=== PATIENT | female | born 1990 | race Caucasian/White ===

== ENCOUNTER 2021-04-27 09:58 | Outpatient (CLI) | payer OTHER, SELFPAY ==
[2021-04-27] VITALS (11 sets, daily range): BP systolic 124–130; BP diastolic 82–91; PULSE 94–104; O2SAT 99–100
--- NOTE | ~2021-04-27 | US_ITS ---
EXAMINATION: US OB limited EXAM DATE: 04/27/2021 11:33 INDICATION: , leaking fluid. Early 3rd trimester. TECHNIQUE: Pelvic obstetrical transabdominal sonogram was performed by a technologist. There are mu ltiple grayscale and Doppler images available for interpretation. There are no earlier studies of th is gestation for comparison. FINDINGS: There is a single fetus identified in vertex presentation with a heart rate of 144 beats pe r minute. The placenta is located in the anterior position. There is no sonographic evidence of retr oplacental hemorrhage identified. AMNIOTIC FLUID INDEX Quadrant 1: 6.1 cm Quadrant 2: 3.8 cm Quadrant 3: 3.8 cm Quadrant 4: 5.1 cm Amniotic fluid index: 18.8 cm. (The 5th -- 95th percentile range is 9.4-22.8). IMPRESSION: 1. Single fetus in vertex presentation with heart rate 144 beats per minute. 2. Normal DIAZ 18.8 cm. Reviewed, dictated and finalized at location A. TH UNDERWRITER
== END 2021-04-27 11:50 | disposition home or self-care (01) ==
LOC: ANHOBOP 10:09 → ANHOBPP 10:11
PROVIDERS: PCP Family Medicine; Visit Provider Obstetrics & Gynecology
DX: O41.8X90 Other specified disorders of amniotic fluid and membranes, unspecified trimester, not applicable or unspecified (principal); Z3A.00 Weeks of gestation of pregnancy not specified
CPT/HCPCS: 36415; 59025; 76815; 84112; 87070; 87106; 99199

== ENCOUNTER 2021-06-22 09:57 | Observation (INO) | payer OTHER, SELFPAY ==
[2021-06-22 10:20] VITALS: BMI 40.8
--- NOTE | 2021-06-22 10:20 | OBADM ---
This patient, Ro Mendez, admitted to the OB room 115 for observation. Patient/family oriented to hospital policies and general routines including ID bracelet, bed and alarms, visiting hours, pain management, procedures, bathroom and other care routines, personal items, smoking policy, room service/diet, and visiting hours. Patient/Family are encouraged to report perceived risks to care and to ask questions if they do not understand what they are told or what they should do.
[2021-06-22 10:30] VITALS: TEMP 37.1
[2021-06-22] MEDS: ACETAMINOPHEN 500 MG TABLET 1000 MG PO (11:31)
[2021-06-22 11:33] LABS: Add Urine Microscopic? NO; Appearance Urine Clear (Clear); Bilirubin Urine Negative (Negative); Blood Urine Negative (Negative); Color Urine Straw (Yellow); Glucose Urine UA Negative (Negative); Ketones Urine Negative (Negative); Leukocyte Esterase Ur Negative LEU/UL (Negative); Nitrate Urine Negative (Negative); Protein Urine Negative (Negative); Urobilinogen Urine Negative mg/dL (<2.0)
[2021-06-22 11:38] VITALS: BP 131/85; PULSE 97
[2021-06-22 11:38] LABS: Specific Grav Ur 1.004 (1.001-1.035)
[2021-06-22 11:38] LABS: Creatinine Urine 37.3 mg/dL; Total Protein Urine Random 18 mg/dL; Ur Ttl Prot Creatinine Ratio 0.48 mg/mg (0-0.20)
[2021-06-22 11:40] LABS: Basophils Percent Auto 0.3 % (0.2-1.2); Eosinophils Absolute Auto 0.1 K/mm3 (0-0.3); Eosinophils Percent Auto 0.5 % (0-4.4); Hematocrit 34.5 % (37.0-47.0); Hemoglobin 11.4 g/dL (12.0-15.0); Immature Granulocyte Absolute 0.05 K/mm3 (0.00-0.031); Immature Granulocyte Percent A 0.4 % (0-0.5); Lymphocytes Absolute Auto 1.64 K/mm3 (0.9-3.2); Lymphocytes Percent Auto 13.7 % (18.3-44.2); Mean Corpuscular Hemoglobin 28.9 pg (26-34); Mean Corpuscular Volume 87.3 fl (80-100); Mean Platelet Volume 10.6 fl (7.4-10.4); Monocytes Absolute Auto 0.8 K/mm3 (0.1-0.6); Monocytes Percent Auto 6.4 % (2.6-8.5); Neutrophils Absolute Auto 9.4 K/mm3 (1.3-6.7); Neutrophils Percent Auto 78.7 % (45.5-73.1); Platelet Count Result 214 k/mm3 (150-375); Red Blood Count 3.95 M/mm3 (4.2-5.4); Red Cell Distribution Width 13.4 % (11.5-14.5)
[2021-06-22 11:50] LABS: Alanine Aminotransferase 9 U/L (4-35); Albumin Level 3.6 g/dL (3.5-5.1); Alkaline Phosphatase 125 U/L (38-126); Anion Gap 6 mmol/L (8-16); Aspartate Amino Transferase 18 U/L (14-36); Bilirubin,Total 0.2 mg/dL (0.2-1.3); Blood Urea Nitrogen 6 mg/dL (7-17); Calcium 9.2 mg/dL (8.4-10.2); Carbon Dioxide 24 mmol/L (22-30); Chloride 106 mmol/L (98-107); Estimated CRCL calculation 133 ml/min; Estimated Glomerular Filt Rate > 60; Glucose 77 mg/dL (65-110); Potassium 4.7 mmol/L (3.4-5.0); Sodium 136 mmol/L (137-145); Uric Acid 4.6 mg/dL (2.5-7.5)
[2021-06-22 12:01] VITALS: BP 123/84; PULSE 93
--- NOTE | 2021-07-03 07:20 | PM.OBTRLD ---
OB - Triage/Final Diagnosis Visit Information Comments/Additional reasons for admission: I have assessed the risk for this patient, Ro Mendez, and determined that she would benefit from observation care. Evaluation Laboratory results: Laboratory Tests 06/22/21 06/22/21 06/22/21 11:05 11:16 11:25 WBC 12.0 H RBC 3.95 L Hgb 11.4 L Hct 34.5 L MCV 87.3 MCH 28.9 MCHC 33.0 RDW 13.4 Plt Count 214 MPV 10.6 H Immature Gran % (Auto) 0.4 Neut % (Auto) 78.7 H Lymph % (Auto) 13.7 L [place] % (Auto) 6.4 Eos % (Auto) 0.5 Baso % (Auto) 0.3 Lymph # (Auto) 1.64 [place] # (Auto) 0.8 H Eos # (Auto) 0.1 Baso # (Auto) 0.0 Abs Immat Gran (auto) 0.05 H Absolute Neuts (auto) 9.4 H Absolute Nucleated RBC 0.0 Nucleated RBC % 0.0 Sodium Potassium Chloride Carbon Dioxide Anion Gap BUN Creatinine Estim Creat Clear Calc Estimated GFR Glucose Uric Acid Calcium Total Bilirubin AST ALT Alkaline Phosphatase Total Protein Albumin Urine Color Straw Urine Appearance Clear Urine pH 7.0 Ur Specific [place] 1.004 Urine Protein Negative Urine Glucose (UA) Negative Urine Ketones Negative Ur Blood (Man) Negative Urine Nitrate Negative Urine Bilirubin Negative Urine Urobilinogen Negative Leukocyte Esterase Rfl Negative U Random Total Protein 18 Urine Creatinine 37.3 Protein/Creat Ratio 2 0.48 H 06/22/21 11:25 WBC RBC Hgb Hct MCV MCH MCHC RDW Plt Count MPV Immature Gran % (Auto) Neut % (Auto) Lymph % (Auto) [place] % (Auto) Eos % (Auto) Baso % (Auto) Lymph # (Auto) [place] # (Auto) Eos # (Auto) Baso # (Auto) Abs Immat Gran (auto) Absolute Neuts (auto) Absolute Nucleated RBC Nucleated RBC % Sodium 136 L Potassium 4.7 Chloride 106 Carbon Dioxide 24 Anion Gap 6 L BUN 6 L Creatinine 0.60 L Estim Creat Clear Calc 133 Estimated GFR > 60 Glucose 77 Uric Acid 4.6 Calcium 9.2 Total Bilirubin 0.2 AST 18 ALT 9 Alkaline Phosphatase 125 Total Protein 7.0 Albumin 3.6 Urine Color Urine Appearance Urine pH Ur Specific [place] Urine Protein Urine Glucose (UA) Urine Ketones Ur Blood (Man) Urine Nitrate Urine Bilirubin Urine Urobilinogen Leukocyte Esterase Rfl U Random Total Protein Urine Creatinine Protein/Creat Ratio 2 Final Diagnosis (1) Headache: Code(s): R51.9 - Headache, unspecified Status: Acute (2) PIH ( induced hypertension): Code(s): O13.9 - Gestational [-induced] hypertension without significant proteinuria, unspecified trimester Status: Acute
== END 2021-06-22 13:02 | disposition home or self-care (01) ==
PROVIDERS: Admitting Provider Obstetrics & Gynecology; PCP Family Medicine; Visit Provider Obstetrics & Gynecology
DX: O13.3 Gestational [pregnancy-induced] hypertension without significant proteinuria, third trimester (principal); R51.9 Headache, unspecified; Z3A.36 36 weeks gestation of pregnancy
CPT/HCPCS: 36415; 80053; 81003; 82570; 84112; 84156; 84550; 85025; A9270; G0378; G0379

== ENCOUNTER 2021-06-23 23:34 | Observation (INO) | payer OTHER, SELFPAY ==
[2021-06-23 23:49] VITALS: BP 145/103; PULSE 102
[2021-06-24] VITALS (8 sets, daily range): BP systolic 104–135; BP diastolic 57–84; PULSE 87–110; BMI 38.5
--- NOTE | 2021-06-24 05:01 | OBADM ---
This patient, Ro Mendez, admitted to the OB room Labor/Delivery/Recovery 109 for observation. Patient/family oriented to hospital policies and general routines including ID bracelet, bed and alarms, visiting hours, pain management, procedures, bathroom and other care routines, personal items, smoking policy, room service/diet, and visiting hours. Patient/Family are encouraged to report perceived risks to care and to ask questions if they do not understand what they are told or what they should do.
--- NOTE | 2021-07-11 02:29 | PM.OBTRLD ---
OB - Triage/Final Diagnosis Visit Information Comments/Additional reasons for admission: I have assessed the risk for this patient, Ro Mendez, and determined that she would benefit from observation care. Final Diagnosis (1) False labor: Code(s): O47.9 - False labor, unspecified Status: Acute
== END 2021-06-24 03:20 | disposition home or self-care (01) ==
PROVIDERS: Admitting Provider Obstetrics & Gynecology; PCP Family Medicine; Visit Provider Obstetrics & Gynecology
DX: O47.03 False labor before 37 completed weeks of gestation, third trimester (principal); Z3A.36 36 weeks gestation of pregnancy
CPT/HCPCS: G0378; G0379

== ENCOUNTER 2021-06-27 06:00 | Inpatient (IN) | payer OTHER, SELFPAY ==
[2021-06-27] VITALS (35 sets, daily range): BP systolic 88–170; BP diastolic 60–108; PULSE 75–132; RESP 16–20; TEMP 35.8–36.8; BMI 41.1
--- OUTSIDE RECORDS SUMMARY | 2021-06-27 06:05 | XMS_ITS ---
:1990 Author Care Team Providers Name Role Phone NOAH HESS MD Primary Care Provider [phone] Allergies Code Code System Name Reaction Severity Status Onset 5933 RxNorm Iodine ? ? Active ? Penicillins ? ? Active ? Medications Name Status Start Date Stop Date ? ? albuterol sulfate Completed ? 12/13/2020 albuterol sulfate ER 4 mg tablet,extended release,12 hr Complete d ? 01/10/2021 take 1 tablet by oral route every 12 hours albuterol sulfate HFA 90 Active ? Not sierra ilable mcg/actuation aerosol inhaler Aurovela Fe 1.5/30 (28) 1.5 mg-30 mcg (21)/75 mg (7) tablet Comp leted ? 01/10/2021 TAKE 1 TABLET BY MOUTH DAILY azithromycin 250 mg tablet Completed ? 12/13 Claritin Active ? Not available doxycycline hyclate 100 mg tablet Completed ? 12/13/2020 TAKE 1 TABLET BY MOUTH TWICE DAILY FOR 7 DAYS Beronica 0.35 mg tablet Completed 08/07/2016 10/16/2016 take 1 tablet by oral route every day Flonase Active ? Not available fluconazole 150 mg tablet Completed ? 2021 TAKE 1 TABLET BY MOUTH NOW AND 1 TABLET IN 3 DAYS ID NOW COVID-19 Test Kit Completed ? 021 DIRECTED loratadine 10 mg disintegrating tablet Completed ? 01/10/2021 take 1 tablet by oral route every day and place on top of the tongue where it will dissolve, then swallow meclizine 25 mg tablet Completed ? TAKE 1 TABLET BY MOUTH THREE TIMES DAILY NEEDED FOR MOTION S ICKNESS metronidazole 500 mg tablet Completed ?
--- OUTSIDE RECORDS SUMMARY | 2021-06-27 06:05 | XMS_ITS | Encounter Summary ---
:1990 Author Care Team Providers Name Role Phone Sylvester Cates MD Primary Care Provider [phone] Reason for Visit None recorded. Assessment and Plan Assessment Note Patient is ___weeks . Discu ssed plan. 1. -induced hypertensio n ? non-stress test Discussion Note: None recorded.Patient educational handouts: No information available. Plan of Care Reminders Provider Appointments Nst 06/28/2021 Camila Goodman, 9:00AM Lab None ? ? recorded. Referral None ? ? recorded. Procedures None ? ? recorded. Surgeries None ? ? recorded. Imaging 06/25/2021 Margo Non-stress Test Medications Name Start Date ? ? albuterol sulfate HFA 90 mcg/actuation aerosol inhaler ? INHALE 2 PUFFS BY MOUTH EVERY 4 HOURS NEEDED Claritin ? Flonase ? ondansetron HCl 4 mg tablet ? TAKE 1 TABLET BY MOUTH EVERY 6 HOURS NEEDED OneTouch Delica Plus Lancet 30 gauge ? OneTouch Ultra Test strips ? Check BS 4x/day - Fasting in the morning and 1 hour a fter each meal OneTouch Ultra2 Meter ? pantoprazole 40 mg tablet,delayed release ? TAKE 1 TABLET BY MOUTH EVERY DAY
--- OUTSIDE RECORDS SUMMARY | 2021-06-27 06:05 | XMS_ITS | Encounter Summary ---
:1990 Author Care Team Providers Name Role Phone Sylvester Cates MD Primary Care Provider [phone] Reason for Visit NST [id number] EDC 07/16/2021 LMP 10/09/2020 Assessment and Plan 1. -induced hypertensio n ? non-stress test Discussion Note: None recorded.Patient educational handouts: No information available. Plan of Care Reminders Provider Appointments Nst 06/28/2021 Camila Goodman, 9:00AM Lab None ? ? recorded. Referral None ? ? recorded. Procedures None ? ? recorded. Surgeries None ? ? recorded. Imaging 06/21/2021 Margo Non-stress Test Medications Name Start Date [...] TAKE 1 TABLET BY MOUTH EVERY DAY ? Unisom (diphenhydramine) ? Medications Administered None recorded. Vitals
--- OUTSIDE RECORDS SUMMARY | 2021-06-27 06:05 | XMS_ITS | Encounter Summary ---
:1990 Author Care Team Providers Name Role Phone Sylvester Cates MD Primary Care Provider [phone] Reason for Visit OB visit Assessment and Plan 1. -induced hypertensio n 2. History of pre-eclampsia 3. Group B Streptococcus carrier Discussion Note: None recorded.Patient educational handouts: No information available. Plan of Care Reminders Provider Appointments Nst 06/28/2021 Camila There se 9:00AM MD Maxine Lab None ? ? recorded. Referral None ? ? recorded. Procedures None ? ? recorded. Surgeries None ? ? recorded. Imaging None ? ? recorded. Medications Name Start Date ? ? albuterol [...] (diphenhydramine) ? Medications Administered None recorded. Vitals Height
--- OUTSIDE RECORDS SUMMARY | 2021-06-27 06:05 | XMS_ITS | Encounter Summary ---
:1990 Author Care Team Providers Name Role Phone Sylvester Cates MD Primary Care Provider [phone] Reason for Visit OB visit Assessment and Plan 1. -induced hypertensio n 2. Group B Streptococcus carrier Discussion Note: None [...] ? Medications Administered None recorded. Vitals Height Weight BMI Blood Pressure 5 f
--- OUTSIDE RECORDS SUMMARY | 2021-06-27 06:05 | XMS_ITS | Encounter Summary ---
:1990 Author Care Team Providers Name Role Phone Sylvester Cates MD Primary Care Provider [phone] Reason for Visit NST [id number] EDC 07/16/2021 LMP 10/09/2020 Assessment and Plan 1. -induced hypertensio n ? non-stress test Discussion Note: None recorded.Patient educational handouts: No information available. Plan of Care Reminders Provider Appointments Nst 06/28/2021 Camila Goodman, 9:00AM Lab None ? ? recorded. Referral None ? ? recorded. Procedures None ? ? recorded. Surgeries None ? ? recorded. Imaging 06/14/2021 Margo Non-stress Test Medications Name Start Date [...]
--- OUTSIDE RECORDS SUMMARY | 2021-06-27 06:05 | XMS_ITS | Encounter Summary ---
:1990 Author Care Team Providers Name Role Phone Sylvester Cates MD Primary Care Provider [phone] Reason for Visit NST [id number] EDC 07/16/2021 LMP 10/09/2020 Assessment and Plan 1. -induced hypertensio n ? non-stress test Discussion Note: None recorded.Patient educational handouts: No information available. Plan of Care Reminders Provider Appointments Nst 06/28/2021 Camila Goodman, 9:00AM Lab None ? ? recorded. Referral None ? ? recorded. Procedures None ? ? recorded. Surgeries None ? ? recorded. Imaging 06/18/2021 Margo Non-stress Test Medications Name Start Date [...]
--- OUTSIDE RECORDS SUMMARY | 2021-06-27 06:06 | XMS_ITS | Encounter Summary ---
:1990 Author Care Team Providers Name Role Phone Sylvester Cates MD Primary Care Provider [phone] Reason for Visit OB visit Assessment and Plan 1. Asthma 2. History of pre-eclampsia 3. Routine care Discussion Note: None recorded.Patient educational handouts: No [...]
--- OUTSIDE RECORDS SUMMARY | 2021-06-27 06:06 | XMS_ITS | Encounter Summary ---
:1990 Author Care Team Providers Name Role Phone Sylvester Cates MD Primary Care Provider [phone] Reason for Visit NST [id number] EDC 07/16/2021 LMP 10/09/2020 Assessment and Plan 1. -induced hypertensio n ? non-stress test Discussion Note: None recorded.Patient educational handouts: No information available. Plan of Care Reminders Provider Appointments Nst 06/28/2021 Camila Goodman, 9:00AM Lab None ? ? recorded. Referral None ? ? recorded. Procedures None ? ? recorded. Surgeries None ? ? recorded. Imaging 06/11/2021 Margo Non-stress Test Medications Name Start Date [...]
--- OUTSIDE RECORDS SUMMARY | 2021-06-27 06:06 | XMS_ITS | Encounter Summary ---
:1990 Author Care Team Providers Name Role Phone Sylvester Cates MD Primary Care Provider [phone] Reason for Visit OB visit Assessment and Plan 1. Routine care 2. History of pre-eclampsia 3. Group B [...] ? Medications Administered None recorded. Vitals Height We
--- OUTSIDE RECORDS SUMMARY | 2021-06-27 06:06 | XMS_ITS | Encounter Summary ---
:1990 Author Care Team Providers Name Role Phone Sylvester Cates MD Primary Care Provider [phone] Reason for Visit OB visit Assessment and Plan 1. Watery vaginal discharge 2. Routine care Discussion Note: None recorded.Patient educational [...] Vitals Height Weight BMI Blood Pressure 5 ft 4 in 222
--- OUTSIDE RECORDS SUMMARY | 2021-06-27 06:06 | XMS_ITS | Encounter Summary ---
:1990 Author Care Team Providers Name Role Phone Sylvester Cates MD Primary Care Provider [phone] Reason for Visit OB visit Assessment and [...]
--- OUTSIDE RECORDS SUMMARY | 2021-06-27 06:06 | XMS_ITS | Encounter Summary ---
:1990 Author Care Team Providers Name Role Phone Sylvester Cates MD Primary Care Provider [phone] Reason for Visit OB visit Assessment and Plan 1. Routine care Discussion Note: None recorded.Patient educational [...] BMI Blood Pressure 5 ft 4 in 224 lbs 38.4 kg/m2 136/87 mm[Hg] Results
--- OUTSIDE RECORDS SUMMARY | 2021-06-27 06:06 | XMS_ITS | Encounter Summary ---
:1990 Author Care Team Providers Name Role Phone Sylvester Cates MD Primary Care Provider [phone] Reason for Visit None recorded. Assessment and Plan 1. -induced hypertensio n ? US, obstetric, biophysical profile + non-stress test Discussion Note: None recorded.Patient educational handouts: No information available. Plan of Care Reminders Provider Appointments Nst Camila There se 06/28/2021 MD Maxien 9:00AM Lab None recorded. ? ? Referral None recorded. ? ? Procedures None recorded. ? ? Surgeries None recorded. ? ? Imaging US, Obstetric, [facility] Biophysical Profile + 06/14/2021 Non-stress Test Medications Name Start Date ? [...]
--- OUTSIDE RECORDS SUMMARY | 2021-06-27 06:06 | XMS_ITS | Encounter Summary ---
:1990 Author Care Team Providers Name Role Phone Sylvester Cates MD Primary Care Provider [phone] Reason for Visit OB visit Assessment and [...]
--- NOTE | 2021-06-27 06:34 | WPDANESEPP ---
Anes - Eval Pre Procedure Procedure: labor epidural Date/Time: 06/27/21 06:34 Preop Diagnosis: pain during labor Pre Op Diagnosis: Induction of Labor Patient Data Age: 30 Gender: F Height: Weight: Allergies Allergy/AdvReac Type Severity Reaction Status Date / Time shellfish derived Allergy Severe Anaphylactic Verified 06/22/21 12:36 Shock hepatitis B virus vaccine Allergy Unknown Rash Verified 09/20/20 14:31 marijuana Allergy Unknown Swelling Verified 09/20/20 14:31 Penicillins Allergy Unknown Hives Verified 06/22/21 12:35 HEMP Allergy Mild SWELLING Uncoded 09/20/20 14:31 Honey Bee Allergy Unknown Swelling Uncoded 09/20/20 14:31 Home Medications Medication Instructions Recorded Confirmed Type PNV cmb#95-ferrous fumarate-FA 1 tablet PO HS 06/16/21 06/22/21 History [] levalbuterol tartrate 2 inh INHALATION Q6H PRN 06/16/21 06/22/21 History Slow Fe 142 mg PO DAILY 06/22/21 06/22/21 History fluticasone propionate 1 spray INTRANASAL DAILY 06/22/21 06/22/21 History loratadine [Claritin] 10 mg PO DAILY 06/22/21 06/22/21 History pantoprazole 40 mg PO DAILY 06/22/21 06/22/21 History Patient hx anesthesia problems: none Family hx anesthesia problems: none Results Review: All pre-operative results and documents have been reviewed as part of the pre-operative evaluation. PMFSH Past Medical History Medical History (Updated 06/27/21 @ 06:35 by Jessica Pace CRNA) IUP (intrauterine ), incidental Motion sickness Obesity (BMI 30-39.9) Family History Family History Grandparent Family history of lung cancer Other Hypertension Social History Social History Smoking status: Never smoker Alcohol intake: current Substance use: never Spiritual care concerns: No Exam Day of Procedure 06/27/21 06:34
[2021-06-27] MEDS: LACTATED RINGERS 1,000 ML 125 ML IV CONT ×2 (07:01→10:42)
[2021-06-27] MEDS: OXYTOCIN 30 UNITS/NS 500 ML 30 UNITS/500 ML BAG IV CONT (07:02)
[2021-06-27 07:16] LABS: Basophils Percent Auto 0.2 % (0.2-1.2); Eosinophils Absolute Auto 0.1 K/mm3 (0-0.3); Eosinophils Percent Auto 0.9 % (0-4.4); Hemoglobin 11.6 g/dL (12.0-15.0); Immature Granulocyte Absolute 0.05 K/mm3 (0.00-0.031); Immature Granulocyte Percent A 0.4 % (0-0.5); Lymphocytes Absolute Auto 1.89 K/mm3 (0.9-3.2); Lymphocytes Percent Auto 15.4 % (18.3-44.2); Mean Corpuscular HGB Conc 33.1 g/dl (32-36); Mean Corpuscular Hemoglobin 28.8 pg (26-34); Mean Corpuscular Volume 86.8 fl (80-100); Mean Platelet Volume 10.7 fl (7.4-10.4); Monocytes Absolute Auto 0.6 K/mm3 (0.1-0.6); Monocytes Percent Auto 4.8 % (2.6-8.5); Neutrophils Absolute Auto 9.7 K/mm3 (1.3-6.7); Neutrophils Percent Auto 78.3 % (45.5-73.1); Platelet Count Result 219 k/mm3 (150-375); Red Blood Count 4.03 M/mm3 (4.2-5.4); Red Cell Distribution Width 13.4 % (11.5-14.5); White Blood Count 12.3 K/mm3 (4.5-10.0)
--- NOTE | 2021-06-27 07:24 | P.HP_ITS ---
Obstetrics - Admit Note Admission Note: record reviewed. No pertinent additions to the history and/or any subsequent changes in the physical findings that are not consistent with the expected course of the were found.IOL, GDM diet controlled, BPP 6/8 and DIAZ 5 cm, currently FHR ctegory 1, AROM minimal amount of clear odo rless fluid, anticipate vaginal delivery Additions to the history and/or subsequent changes in the physical findings follow. None.
--- NOTE | 2021-06-27 07:29 | LDADM ---
This patient, Ro Mendez, was admitted to Labor/Delivery/Recovery 106 on 06/27/21 at 06:00. Plans for labor, pain management and were discussed with patient. Patient/family oriented to hospital policies and general routines including ID bracelet, bed and alarms, visiting hours, pain management, procedures, bathroom and other care routines, personal items, smoking policy, room service/diet and guest tray routines, infant security routines, and visiting hours. Patient/Family are encouraged to report perceived risks to care and to ask questions if they do not understand what they are told or what they should do. See OBIX for further documentation.
--- NOTE | 2021-06-27 07:46 | PM.IMHP ---
H&P: HPI History of Present Illness Date/Time: 06/27/21 07:46 Chief Complaint: induction of labor Narrative: Ro is a 30yo who presents for IOL for PIH. 24 hour urine was 224mg. otherwise uncomplicated. Does have mild CONN today. Review of Systems Review of Systems: All systems reviewed & are unremarkable except as noted in HPI and below PMFSH Past Medical History Medical History (Updated 06/27/21 @ 07:47 by Camila Goodman MD) IUP (intrauterine ), incidental Motion sickness Obesity (BMI 30-39.9) Family History Family History Grandparent Family history of lung cancer Other Hypertension Social History Social History Smoking status: Never smoker Alcohol intake: current Substance use: never Spiritual care concerns: No Meds Home Medications and Allergies Home Medications Medication Instructions Recorded Confirmed Type PNV cmb#95-ferrous fumarate-FA 1 tablet PO HS 06/16/21 06/22/21 History [] levalbuterol tartrate 2 inh INHALATION Q6H PRN 06/16/21 06/22/21 History Slow Fe 142 mg PO DAILY 06/22/21 06/22/21 History fluticasone propionate 1 spray INTRANASAL DAILY 06/22/21 06/22/21 History loratadine [Claritin] 10 mg PO DAILY 06/22/21 06/22/21 History pantoprazole 40 mg PO DAILY 06/22/21 06/22/21 History Allergies Allergy/AdvReac Type Severity Reaction Status Date / Time shellfish derived Allergy Severe Anaphylactic Verified 06/22/21 12:36 Shock hepatitis B virus vaccine Allergy Unknown Rash Verified 09/20/20 14:31 marijuana Allergy Unknown Swelling Verified 09/20/20 14:31 Penicillins Allergy Unknown Hives Verified 06/22/21 12:35 HEMP Allergy Mild SWELLING Uncoded 09/20/20 14:31 Honey Bee Allergy Unknown Swelling Uncoded 09/20/20 14:31 Vital Signs Vital Signs - 24 hr 06/27/21 06:45 06/27/21 07:01 06/27/21 07:04 Temperature 97.6 F Pulse Rate 98 93 Blood Pressure 148/103 H 141/91 H 06/27/21 07:16 06/27/21 07:30 06/27/21 07:31 Temperature 97.9 F Pulse Rate 88 92 Blood Pressure 139/83 145/94 H Exam Const: General: no acute distress Resp: Effort & Inspection: normal respiratory effort Auscultation: clear to auscultation bilaterally Cardio: Rate: regular rate Rhythm: regular rhythm GI: GI Palp: Yes Soft to palpation Extrem: General: normal to inspection H&P: Results Labs Labs: Short CBC 06/27/21 Range/Units 06:44 WBC 12.3 H (4.5-10.0) K/mm3 Hgb 11.6 L (12.0-15.0) g/dL Hct 35.0 L (37.0-47.0) % Plt Count 219 (150-375) k/mm3 Assessment and Plan Assessment and plan (1) PIH ( induced hypertension): Code(s): O13.9 - Gestational [-induced] hypertension without significant proteinuria, unspecified trimester Status: Acute Additional Plan Here for induction of labor- PIH GBS pos pitocin per protocol AROM clear /-2 FHT category 1
[2021-06-27] MEDS: ACETAMINOPHEN 500 MG TABLET 1000 MG PO (07:57)
[2021-06-27] MEDS: fentaNYL CITRATE INJ (*CRX) 100 MCG/2 ML VIAL IV PUSH (08:21)
[2021-06-27 08:36] LABS: Alanine Aminotransferase 12 U/L (4-35); Albumin Level 3.6 g/dL (3.5-5.1); Alkaline Phosphatase 139 U/L (38-126); Anion Gap 7 mmol/L (8-16); Aspartate Amino Transferase 21 U/L (14-36); Bilirubin,Total 0.1 mg/dL (0.2-1.3); Blood Urea Nitrogen 7 mg/dL (7-17); Calcium 9.1 mg/dL (8.4-10.2); Carbon Dioxide 19 mmol/L (22-30); Chloride 109 mmol/L (98-107); Estimated CRCL calculation 134 ml/min; Estimated Glomerular Filt Rate > 60; Glucose 118 mg/dL (65-110); Potassium 3.7 mmol/L (3.4-5.0); Sodium 135 mmol/L (137-145); Uric Acid 4.8 mg/dL (2.5-7.5)
[2021-06-27 09:07] LABS: Rapid Plasma Reagin Non-Reactive (NonReactive)
[2021-06-27] MEDS: MAGNESIUM SULF 4 GM/WATER100ML 4 GM/100 ML BAG IVPB (09:23)
--- NOTE | 2021-06-27 10:09 | PM.OBPRVD ---
OB - Delivery Note Procedure Delivery date: 06/27/21 Procedure: Events: Preeclampsia w severe features Induction method: AROM and Per Pitocin Protocol Delivery monitor: External FHT and External Uterine Route of delivery: Episiotomy description: None Laceration Description: None Specimen: Yes Quantitative Blood Loss (ml): 105 Anesthesia type: None Disposition: Floor Narrative: With adequate expulsive efforts by the mother, the baby's head was delivered OA. The baby's anterior shoulder was delivered under the pubic symphysis without difficulty. The posterior shoulder and the rest of the baby delivered without difficulty. The was placed on the mothers chest and suctioned and stimulated. The cord was clamped and cut after 30 seconds. Mother and baby both stable. Baby Date of : 06/27/21 Time of : 09:55 Weeks of gestation at delivery: 37 gender: Male Weight (pounds): 7 Weight (ounces): 4 presentation: vertex Placenta delivery description: Spontaneous Cord Vessel Description: 3 Vessels, Nuchal Cord and Delayed Cord Clamping score one minute: 8 score five minutes: 9
[2021-06-27] MEDS: MAGNESIUM SULF 20GM/WATER500ML 500 ML 50 MG IV CONT (10:40)
[2021-06-27] MEDS: OXYTOCIN 30 UNITS/NS 500 ML 30 UNITS/500 ML BAG 125 UNITS IV CONT (10:42)
--- NOTE | 2021-06-27 13:20 | PC.NURSE ---
Patient transferred to post room #280 per wheelchair from labor and delivery. Support person present. Oriented to unit, room, information board, rooming in, admission packet and security measures. Patient verbalizes understanding.
--- NOTE | 2021-06-27 15:47 | PC.NURSE ---
1055 -Introductions made in the labor room 106 and consulted with patient to assess needs related to . Mother led conversation with her past experience feeding her last baby and her plans to feed the new baby just born. is latched in cross cradle position but detaches. Nipple is slightly misshaped. RN suggests to mother to attempt football position. Nipples are inverted and has a prominent tight lingual frenulum. Right nipple everts at a grade 2 after infant was latched. Mother works well with her infant. Reviewed good handwashing when working with , breast, nipples and how to protect the nipples with a deep latch. Encouraged understanding the benefits of skin to skin, responding to feeding cues, frequencies of feeding 8-12 times in 24 hours (approximately 2-3 hours), duration of feedings, milk production, intake/output feeding sheet and signs of adequate intake. Discussed stimulating infant with skin to skin, hand expressing colostrum, touch and talking to infant to encourage eating at the breast. Reviewed positioning and alignment, supporting breast, off-centered (asymmetrical latch) and leading with the chin with big open wide gape. was able to latch optimally to the right breast in football position. Education given to mother of how to visualize suck/swallow ratios and drinking at the breast. was able to maintain latch without discomfort to mother. Nipple care reviewed with optimal latching and positioning. Resources used to facilitate learning were used from the tool. Discussed pumping and feeding infant as an option. Mother voiced understanding responding to feeding cues, may need to stimulating infant approximately 2-3 hours from the start of the last feeding, calling for assistance if the does not latch or there discomfort . Reported to nursery RN.
--- NOTE | 2021-06-27 17:15 | PC.NURSE ---
Mother has her breast pump from home. She is very familiar with it's use and has pumped with her previous baby. Collection and storage of breastmilk per mom and baby guide. Encouraged mom to place skin to skin and to call for assistance. Mother is ok with supplementation with formula until her milk comes in. Does not desire to attempt to put baby to breast again at this time.
[2021-06-27] MEDS: ACETAMINOPHEN 325 MG TABLET 650 MG PO (17:24)
[2021-06-28 04:45] VITALS: BP 133/89; PULSE 94; RESP 16; TEMP 36.4
[2021-06-28] MEDS: ACETAMINOPHEN 325 MG TABLET 650 MG PO (05:00)
[2021-06-28 05:56] LABS: Hematocrit 32.5 % (37.0-47.0); Hemoglobin 10.6 g/dL (12.0-15.0)
[2021-06-28 08:05] VITALS: BP 134/88; PULSE 96; RESP 16; TEMP 36.1; O2SAT 99
--- NOTE | 2021-06-28 08:38 | PM.OBPNVD ---
OB - PN: Subj Subjective Date/time seen: 06/28/21 08:38 Patient comments: no complaints, pain well controlled, incisional pain, tolerating diet and flatus present OB - PN: Obj Data Labs CBC & Chem 7: 06/28/21 05:48 06/27/21 06:44 Labs: Laboratory Results - last 24 hr 06/27/21 06/28/21 06:44 05:48 Hgb 10.6 L Hct 32.5 L RPR Non-reactive OB - PN A/P Assessment and Plan (1) PIH ( induced hypertension): Code(s): O13.9 - Gestational [-induced] hypertension without significant proteinuria, unspecified trimester Status: Acute Plan day: 1 Plan: routine care Comments: No problems, routine care severe preeclampsia, she was delivered magnesium sulfate treatment. Magnesium sulfate was discontinued. She has been stable since. To continue observation. Time Spent With Patient Time: Total time spent is greater than 50% in coordination of care (as documented) at patient's floor/unit and/or counseling patient: Exam Const: General: comfortable, no acute distress and alert Resp: Effort & Inspection: normal respiratory effort Auscultation: no crackles, no rales and no rhonchi Cardio: Rate: regular rate Heart sounds: no click, no murmurs and no rubs GI: Inspection: non-distended GI Palp: No Tenderness to palpation present (GI) Auscultation: normal bowel sounds Other: Incision - CDI Extrem: General: normal to inspection, no pedal edema and no calf tenderness
[2021-06-28] MEDS: MULTIVIT/MIN/PREN/FOL AC/IRON TABLET 1 TAB PO (09:04)
[2021-06-28 12:36] VITALS: BP 124/85; PULSE 88; RESP 16; TEMP 36.4; O2SAT 100
--- NOTE | 2021-06-28 12:52 | PC.NURSE ---
Counseled with mother regarding her desire to provide breastmilk for baby and supplementing with formula also. Mother has inverted nipples and was able to exclusively pump and given EBM to her 4 year old daughter for 5 months. Mother states this baby has latched using a nipple shield and is currently using her own breast pump for stimulation q3 hours. Discussed risks of low milk supply with early introduction of artificial nipple and parents verbalized understanding. Parents plan on giving formula until mother's milk comes in. No latch seen at this time. Instructed mother to call out if she desires assist or would like latch assessment. Mother appears to be confident in her ability to effectively feed infant. Mother plans to continue to offer the breast, pump, and then supplement with formula. Support provided for feeding choice.
[2021-06-28 16:30] VITALS: BP 133/89; PULSE 82
[2021-06-28 19:25] VITALS: BP 134/83; PULSE 84; RESP 16; TEMP 36.5
[2021-06-28 22:05] VITALS: BP 129/81; PULSE 89; RESP 16; TEMP 36.2
[2021-06-29 05:10] VITALS: BP 122/83; PULSE 93; RESP 16; TEMP 36.6
[2021-06-29 07:30] VITALS: BP 143/89; PULSE 88; RESP 18; TEMP 36.3; O2SAT 100
--- NOTE | 2021-06-29 07:59 | P.PNOB_ITS ---
OB - PN: Subj Subjective Date/time seen: 06/29/21 07:59 Patient comments: no complaints and pain well controlled baby status: doing well Painter feeding status: breast and bottle feeding Narrative: s/p magnesium. BPs 122-134/81-89. Denies CONN/BV/EP. OB - PN: Obj Data Labs CBC & Chem 7: 06/28/21 05:48 06/27/21 06:44 OB - PN A/P Assessment and Plan (1) Pre-eclampsia, mild: Code(s): O14.00 - Mild to moderate pre-eclampsia, unspecified trimester Status: Acute (2) , delivered: Code(s): O80 - Encounter for full-term uncomplicated delivery Status: Acute Plan day: 2 Plan: routine care and discharge home Comments: BPs great DC home, BP check 1 week. Time Spent With Patient Time: Total time spent is greater than 50% in coordination of care (as documented) at patient's floor/unit and/or counseling patient: Time with patient: less than 15 minutes Exam Narrative: NAD abdomen soft, nontender, fundus firm below the umbilicus Extremities nontender, 1+ edema
--- NOTE | 2021-06-29 08:02 | PM.DS ---
DS: Admitting Diagnosis Discharge Date 06/29/21 Admitting Diagnosis IUP at 37w, mild PreEclampsia DS: Discharge Diagnosis Discharge Diagnosis (1) , delivered: Code(s): O80 - Encounter for full-term uncomplicated delivery Status: Acute (2) Pre-eclampsia, mild: Code(s): O14.00 - Mild to moderate pre-eclampsia, unspecified trimester Status: Acute DS: Summary Hospital Course Reason for hospitalization: . Hospital Course: Ro was admitted for IOL at 37.0 for mild PreEclampsia. Shortly after admission she had severe range BPs and she was given magnesium sulfate. She had an uncomplicated and course. BPs great following DC of magnesium Status at Discharge Functional status at discharge: independent ambulation Time Spent with Patient Time attestation: Total time spent providing and/or coordinating discharge services: Discharge Plan Discharge Attending physician on discharge: Camila Goodman Discharging Clinician: Camila Goodman Anticipated Discharge Date/Time: 06/29/21 08:01 Patient Disposition: Home, Self-Care Activity: pelvic rest Diet: regular Patient Instructions: Antibiotic Form Stand Alone Forms: General Discharge Information Follow-up/Referrals: Camila Goodman MD [Physician] - 1 Week Discharge Medications: Continued levalbuterol tartrate 45 mcg/actuation Hfa Aerosol Inhaler 2 inh INHALATION Q6H PRN (Reason: Shortness Of Breath) RF: 0 PNV [id number]-ferrous fumarate-FA [] 28 mg iron- 800 mcg Tablet 1 tablet PO HS RF: 0 pantoprazole 40 mg tablet,delayed release (DR/EC) 40 mg PO DAILY RF: 0 fluticasone propionate 50 mcg/actuation [place],Suspension 1 spray INTRANASAL DAILY RF: 0 loratadine [Claritin] 10 mg Tablet 10 mg PO DAILY RF: 0 Slow Fe 142 mg (45 mg iron) Tablet Extended Release 142 mg PO DAILY RF: 0 Date of admission: 06/27/21 06:00 Primary Care Provider: Sylvester Cates Admitting Provider: Camila Goodman Attending physician on admission: Camila Goodman Condition: Stable
[2021-06-29] MEDS: MULTIVIT/MIN/PREN/FOL AC/IRON TABLET 1 TAB PO (08:20)
--- NOTE | 2021-06-29 09:00 | PC.NURSE ---
Patient instructed to view the discharge video Mother & Baby Care, The First Two Weeks online. Patient was given the opportunity and encouraged to ask questions. Patient verbalized understanding of information shared and has been given the mother/baby guide for home reference.
--- NOTE | 2021-06-29 09:54 | PC.NURSE ---
Breast pump provided prior to my assessment. Reviewed information regarding pump care, hand washing, nipple care and pumping 8 times in 24 hours. Discussed she may want to pump after feedings or between feedings. Collection and storage of breastmilk per mom and baby guide. Referred to the visual handout along with the mom and baby guide as a resource and when to call a provider. Mother denies any pain while pumping. Reported to primary RN. Introductions were made and mother led the conversation with regards to her experience feeding her baby. Reminded parents to use good handwashing to prevent infection. Infant has had adequate feedings in the past 24 hours and meets the outcomes for weight, output and jaundice. Mother states she feels confident to continue , pumping and supplementing her at home. Reviewed production of human milk, transition of milk, signs of adequate intake and engorgement prevention/relief and when to call the infant care provider using the mom and baby guide and elimination sheet. Reviewed outpatient services as listed in the mom and baby guide/[facility] website. Reinforced watching for feeding cues with responsive feeding and how to stimulate to initiate feeding three hours from the start of the last feeding. Mother voiced understanding of information shared. Reported to primary RN. Nipple shield provided to prior to my assessment. Reviewed good handwashing, cleaning the nipple shield and application. Discussed with mom the nipple shield precautions and possible complications. Mom and baby guide referred to as a resource for using a nipple shield, out-patient services and when to call a provider. Mom voiced understanding of the importance of hand expression, nipple stimulation and initiating a pumping schedule if continues to nurse with the shield. Mother states she has no questions regarding feeding infant. She states that nipples are sore without cracking, bleeding or blisters. States infant's stool is green colored and she knows when to call peds. Mother currently finishing bottle feeding ; encouraged to call out to have next feeding assessed.
[2021-06-30 08:40] VITALS: BP 126/83; PULSE 78; RESP 20; TEMP 37.1; O2SAT 100
== END 2021-06-29 10:30 | disposition home or self-care (01) | DRG 807 ==
LOC: ANHLDR 06:04 → ANHOB2 13:29
PROVIDERS: Admitting Provider Obstetrics & Gynecology; PCP Family Medicine; Visit Provider Obstetrics & Gynecology
DX: O14.04 Mild to moderate pre-eclampsia, complicating childbirth (principal); Z37.0 Single live birth; Z3A.37 37 weeks gestation of pregnancy; O14.14 Severe pre-eclampsia complicating childbirth; O99.824 Streptococcus B carrier state complicating childbirth; O69.81X0 Labor and delivery complicated by cord around neck, without compression, not applicable or unspecified; O62.3 Precipitate labor
CPT/HCPCS: 36415; 80053; 84550; 85014; 85018; 85025; 86592; 86850; 86900; 86901; A9270; G0378; G0379; J2590; J2795; J3010; J3370; J3475; J7120

== ENCOUNTER 2023-12-12 17:23 | Emergency (ER) | payer OTHER, SELFPAY ==
[2023-12-12 17:30] VITALS: BP 137/85; PULSE 89; RESP 16; TEMP 36.4; O2SAT 100
--- NOTE | 2023-12-12 17:30 | ED.URI ---
HPI - URI/Sore Throat General Chief Complaint: Upper Respiratory Infection Stated Complaint: sore throat Time Seen by Provider: 12/12/23 17:44 Source: patient and RN notes reviewed Mode of arrival: ambulatory Limitations: no limitations History of Present Illness HPI Narrative: 33-year-old female presents with concern for sore throat that started today. She reports about 4 day history of general malaise, mild cough and nasal congestion. She reports fever at the start of her symptoms. MD elicited complaint: sore throat Related Data Home Medications Medication Instructions Recorded Confirmed ferrous sulfate 142 mg (45 mg 142 mg PO DAILY 06/22/21 06/22/21 iron) tablet,extended release (Slow Fe) fluticasone propionate 50 1 spray intranasal DAILY 06/22/21 06/22/21 mcg/actuation nasal spray,suspension loratadine 10 mg tablet (Claritin) 10 mg PO DAILY 06/22/21 06/22/21 Allergies Allergy/AdvReac Type Severity Reaction Status Date / Time shellfish derived Allergy Severe Anaphylactic Verified 06/22/21 12:36 Shock hepatitis B virus vaccine Allergy Unknown Rash Verified 09/20/20 14:31 marijuana (cannabis) Allergy Unknown Swelling Verified 09/20/20 14:31 [marijuana] Penicillins Allergy Unknown Hives Verified 06/22/21 12:35 HEMP Allergy Mild SWELLING Uncoded 09/20/20 14:31 Honey Bee Allergy Unknown Swelling Uncoded 09/20/20 14:31 Review of Systems Review of Systems: CONSTITUTIONAL: Denies malaise, chills, sweats, or fever. EYES: Denies visual changes, redness, or discharge. ENT: Reports rhinorrhea, congestion, and sore throat. CARDIOVASCULAR: Denies chest pain, palpitations, or edema. RESPIRATORY: Reports cough. Denies dyspnea. GASTROINTESTINAL: Denies abdominal pain, nausea, vomiting, diarrhea SKIN: Denies rash or itching. MUSCULOSKELETAL: Denies myalgia. NEUROLOGIC: Denies headache. All systems reviewed & are unremarkable except as noted in HPI and below PMFSH Past Medical History Medical History (Updated 12/12/23 @ 17:49 by Mary Lou Rangel NP) IUP (intrauterine ), incidental Motion sickness Obesity (BMI 30-39.9) Family History Family History Grandparent Family history of lung cancer Other Hypertension Social History Social History Smoking status: Never smoker Alcohol intake: current Substance use: never Spiritual care concerns: No Comments At time of signature, agree with nursing past medical, surgical, social and family history. There is no relevant family history pertinent to the presenting complaint Exam Narrative: GENERAL: Well-appearing, well-nourished, and in no acute distress. HEAD: Normocephalic EYES: PERRLA, conjunctivae clear ENT: Nares clear. Mucous membranes moist. TM pearly [place] with dull light reflex bilaterally; no tragal tenderness. Oropharynx not erythematous without lesions. Tonsils not enlarged and without exudate, no drooling, no hoarseness, no trismus, uvula midline. NECK: Supple. No lymphadenopathy CHEST: Clear to auscultation, breath sounds equal. No wheezing, rhonchi, rales, or stridor. No respiratory distress, speaks in full sentences. HEART: Regular rate and rhythm. No murmur heard. SKIN: Warm, dry, no rash. NEURO: Alert and oriented x3. PSYCH: Normal mood and affect Course Course Emergency Course: Patient is aware of diagnosis, understands and agrees to treatment plan. Anticipatory guidance given. Patient agrees to follow-up as directed and is aware of reasons to seek care at the emergency department. Portions of this record may have been created with voice recognition software Level of Care: Express Care Visit Vital Signs Vital signs: Reviewed. MDM - URI/Sore Throat MDM Narrative Medical decision making narrative: Differential diagnosis considered: [place] virus, strep pharyngitis, allergic rhinitis, upper r
[2023-12-12 17:46] LABS: EDSTREPNEGPOS1 Negative
== END 2023-12-12 17:52 | disposition home or self-care (01) ==
PROVIDERS: Emergency Provider Nurse Practitioner; PCP Family Medicine
DX: J02.0 Streptococcal pharyngitis (principal); Z20.822 Contact with and (suspected) exposure to COVID-19; E66.9 Obesity, unspecified; Z68.35 Body mass index [BMI] 35.0-35.9, adult
CPT/HCPCS: 87081; 87426; 87880; 99213; G0463